=== PATIENT | female | born 1990 | race African-American/Black ===

== ENCOUNTER 2024-03-01 17:14 | Emergency (ER) | payer MEDICARE, MEDICAID ==
[~2024-03-01] VITALS: Ht 149.9 cm; Wt 53.0 kg
[2024-03-01 17:16] VITALS: TEMP 99.1; O2SAT 100
[2024-03-01 22:42] VITALS: BP 129/90; PULSE 88; RESP 16; O2SAT 100
== END 2024-03-01 22:44 | disposition home or self-care (01) ==
LOC: ER 17:14
DX: S00.81XA Abrasion of other part of head, initial encounter (principal); R51.9 Headache, unspecified; Y08.89XA Assault by other specified means, initial encounter; Y93.89 Activity, other specified; Y92.89 Other specified places as the place of occurrence of the external cause; Y99.8 Other external cause status
CPT/HCPCS: 70486; 99284